=== PATIENT | male | born 1970 | race Two or more races ===

== ENCOUNTER 2021-05-15 14:55 | Emergency (ER) | payer OTHER ==
[~2021-05-15] VITALS: Ht 175.3 cm; Wt 88.5 kg
[2021-05-15 14:55] VITALS: BP 144/103
[2021-05-15] MEDS ORDERED: KETOROLAC TROMETH 60MG/2ML VIAL IM ONE (17:15)
== END 2021-05-15 18:32 | disposition home or self-care (01) ==
LOC: ER 14:55
DX: M25.511 Pain in right shoulder (principal); M54.2 Cervicalgia
CPT/HCPCS: 72040; 73030; 93005; 96372; 99284; J1885